=== PATIENT | male | born 1955 | race Caucasian/White ===

== ENCOUNTER 2018-04-20 07:57 | Day surgery (SDC) | payer BC ==
--- NOTE | 2018-04-03 08:59 | HP ---
CC: IRMA Pierre, [facility] * ADMITTING HISTORY AND PHYSICAL: DATE OF ADMISSION: 04/20/18 ADMITTING DIAGNOSES: 1. Right renal calculus. 2. Microscopic hematuria. PLANNED PROCEDURE: Shock wave lithotripsy of right renal calculus. SURGEON: Dr. Tirado. HISTORY OF PRESENT ILLNESS: Nestor Vasquez is a 62-year-old gentleman with a history of recurrent renal calculi. He was recently evaluated and noted to have an 8- to 9- mm calculus in the right kidney and he would like to have treatment of the same. He is now being brought in for shock wave lithotripsy. PAST MEDICAL HISTORY: Significant for kidney stones. PAST SURGICAL HISTORY: Significant for: 1. Lymph node biopsy (benign). 2. Throat surgery secondary to injury related to a pretzel. 3. Right ureteroscopy in 2009. 4. Surgery for a deviated nasal septum. MEDICATIONS ON ADMISSION: None. ALLERGIES: No known drug allergies. SOCIAL HISTORY: Smoking history: He is a nonsmoker. REVIEW OF SYSTEMS: He is otherwise in excellent health. There is no history of diabetes mellitus or any other major systemic illness. PHYSICAL EXAMINATION GENERAL: Reveals a pleasant, healthy-appearing, middle-aged gentleman. VITAL SIGNS: Blood pressure is 134/80, pulse 70 per minute and regular, oxygen saturation 97% on room air. LUNGS: Clear bilaterally. CARDIOVASCULAR: Regular rate and rhythm. S1, S2. ABDOMEN: Soft without masses. IMPRESSION: A 62-year-old gentleman with a nonobstructing approximately 8-mm calculus in the right kidney. I have discussed the procedure of shock wave lithotripsy including possible risks of bleeding, infection, incomplete fragmentation, and obstructing fragment requiring stent insertion. PLAN: Shock wave lithotripsy, right renal calculus. [id number] #: [id number] [facility]
[~2018-04-20 07:57] MED LIST: Buffered Lidocaine 0.9% SYRIN* 5 ML/SYR SYRINGE INTRADERM ONE; Lactated Ringers 1000 ML Bag* 1,000 ML IV SCH; Sodium Citrate/Citric Acid* 15 ML UDC PO ONE
[2018-04-20] MEDS ORDERED: Sodium Citrate/Citric Acid* 15 ML UDC ONE (08:16)
[2018-04-20] MEDS ORDERED: cefTRIAXone(*) 2 GM ADDV.VIAL IVPB ONE (08:16)
[2018-04-20] MEDS ORDERED: Ondansetron INJ* 2 MG/ML VIAL IV PRN (10:30)
[2018-04-20] MEDS ORDERED: fentaNYL* 50 MCG/ML 2 ML VIAL (100 MCG VIAL) IV PRN (10:30)
[2018-04-20] MEDS ORDERED: Naloxone* 0.4 MG/ML 1 ML VIAL IV PRN (10:30)
[2018-04-20] MEDS ORDERED: Propofol* 10 MG/ML 20 ML BTL ONE (10:36)
[2018-04-20] MEDS ORDERED: Lidocaine 2% PF * 5 ML VIAL ONE (10:36)
[2018-04-20] MEDS ORDERED: Furosemide IV* 10 MG/ML 2 ML VIAL (20 MG) ONE (11:11)
[2018-04-20] MEDS ORDERED: Acetaminophen TAB* 325 MG ONE (12:29)
[2018-04-20 12:38] VITALS: BP 148/92
--- NOTE | 2018-04-20 13:32 | OP ---
CC: IRMA Pierre, [facility] * DATE OF OPERATION: 04/20/18 - [facility] DATE OF : 57 SURGEON: Cornell Tirado MD. ANESTHESIOLOGIST: Dr. Chen. ANESTHESIA: General. PRE-OP DIAGNOSIS: Right renal calculus. POST-OP DIAGNOSIS: Right renal calculus. OPERATIVE PROCEDURE: Shockwave lithotripsy of right renal calculus. COMPLICATIONS: None. INDICATIONS: Nestor Vasquez is a 62-year-old gentleman who was evaluated and noted to have a 8 mm to 9 mm calculus in the right kidney. He would like to have treatment of the same and I have discussed the procedure of lithotripsy in detail including possible risks of bleeding, infection, and incomplete fragmentation. POSTOPERATIVE CONDITION: Stable. DESCRIPTION OF PROCEDURE: After induction of general anesthesia, the patient was placed on the lithotripsy table in supine position. The calculus in the mid to lower pole of the right kidney was localized using fluoroscopy. Shockwave lithotripsy was commenced at a rate of 60 shocks per minute. After the initial 300 shocks, there was a brief pause in lithotripsy for several minutes in an effort to minimize any potential trauma to the kidney. Lithotripsy was then resumed and periodic imaging revealed good localization and fragmentation. A total of 2000 shocks were administered. The patient tolerated the procedure satisfactorily and was transferred back to the recovery area in stable condition. [id number]/[facility] #: [id number] MTDD
== END 2018-04-20 12:45 | disposition home or self-care (01) ==
LOC: OR 07:57
PROVIDERS: ATTEND Urology
DX: N20.0 Calculus of kidney (principal)
CPT/HCPCS: 74018; A9270-GY; J0696; J1940; J2704